=== PATIENT | male | born 1950 | race Asian ===

== ENCOUNTER 2018-04-29 08:39 | Emergency (ER) | payer OTHER, BC ==
[~2018-04-29] VITALS: Ht 167.6 cm; Wt 64.0 kg
[2018-04-29 08:49] VITALS: Ht 167.6 cm; Wt 64.0 kg
[2018-04-29 10:43] LABS: BASOPHIL % 1.1 % (0-2); PLATELET COUNT 150 x10^3mcL (130-400); RED CELL DISTRIBUTION WIDTH 14.1 % (11.5-14.5)
[2018-04-29 10:57] LABS: ALBUMIN 3.7 g/dL (3.4-5.0); BILIRUBIN TOTAL 0.69 mg/dL (0.20-1.00); CALCIUM 8.5 mg/dL (8.5-10.1); CARBON DIOXIDE 26.2 mmol/L (21-32); CREATININE SERUM 2.7 mg/dL (0.7-1.3); POTASSIUM SERUM 4.7 mmol/L (3.5-5.1); TOTAL PROTEIN, SERUM 7.1 g/dL (6.4-8.2)
[2018-04-29 11:05] LABS: T3 TOTAL 0.62 ng/mL
[2018-04-29 11:07] LABS: CHOLESTEROL/HDL RATIO 1.8
[2018-04-29 11:08] LABS: FREE T4 1.31 ng/dL (0.76-1.46); FREE THYROXINE INDEX 3.7 ug/dL (1.4-4.5); T4(THYROXINE) 9.9 ug/dL (4.7-13.3)
[2018-04-29 11:44] VITALS: BP 121/69
== END 2018-04-29 11:44 | disposition home or self-care (01) ==
LOC: ED 08:39
PROVIDERS: Specialist
DX: N18.9 Chronic kidney disease, unspecified (principal); E03.9 Hypothyroidism, unspecified; R60.0 Localized edema; M10.9 Gout, unspecified; Z86.2 Personal history of diseases of the blood and blood-forming organs and certain disorders involving the immune mechanism; Z95.2 Presence of prosthetic heart valve
CPT/HCPCS: 36415; 83880; 84439; Q0092